=== PATIENT | male | born 1930 | race Caucasian/White ===

== ENCOUNTER 2017-02-13 07:04 | Day surgery (SDC) | payer MEDICARE ==
[~2017-02-13] VITALS: Ht 182.9 cm; Wt 107.7 kg
[~2017-02-13 07:04] MED LIST: ALBUTEROL0.09 MG/A1 IH; ASPIRIN E.C.325 MG PO; ATROVENT0.018 MG/A IH; ATROVENTNS0.03% NS; CARDURA 8MG TAB8 MG PO; CENTRUM SILVER1 CTB PO; COUMADIN 1MG1 MG/TAB PO; COUMADIN 3MG3 MG/TAB PO; DOXAZOCIN PO; DOXYCYCLINE 10100 MG PO; FISH OIL CONC1000 MG PO; HYGROTON25 MG PO; KLOR-CON 1010 MEQ PO; MVI PO; NORCO 325 MG-7.1 TAB PO; THEO-DUR 2200 MG/TAB PO; VITAMINC1000TA PO
[2017-02-13 08:29] VITALS: BP 120/97; PULSE 96; TEMP 97.5
[2017-02-13 08:34] LABS: INR 1.2 (0.8-3.0); PROTHROMBIN TIME 12.9 SECONDS (9.7-12.8)
[2017-02-13] MEDS ORDERED: NORCO 325 MG-101 TAB PO (08:35)
[2017-02-13] MEDS ORDERED: CARDURA4 MG PO (08:36)
[2017-02-13] MEDS ORDERED: COUMADIN 6MG6 MG/TAB PO (08:37)
[2017-02-13] MEDS ORDERED: NEURONTIN300 MG/CAP PO (08:39)
[2017-02-13 09:30] VITALS: BP 115/58; PULSE 81; TEMP 98.1
[2017-02-13 09:45] VITALS: BP 118/49; PULSE 82
[2017-02-13 10:00] VITALS: BP 102/58; PULSE 75
[2017-02-13 10:15] VITALS: BP 108/55; PULSE 71
[2017-02-13 10:38] VITALS: BP 96/55; PULSE 71
[2017-02-19] MEDS ORDERED: COUMADIN 5MG5 MG/TAB PO (09:08)
== END 2017-02-13 11:21 | disposition home or self-care (01) ==
LOC: SDCO 07:04
PROVIDERS: Internal Medicine Pulmonary Disease
DX: R91.8 Other nonspecific abnormal finding of lung field (principal); J84.10 Pulmonary fibrosis, unspecified; Z77.090 Contact with and (suspected) exposure to asbestos; G47.33 Obstructive sleep apnea (adult) (pediatric); I25.10 Atherosclerotic heart disease of native coronary artery without angina pectoris; Z87.891 Personal history of nicotine dependence; Z96.643 Presence of artificial hip joint, bilateral; Z79.899 Other long term (current) drug therapy; Z79.01 Long term (current) use of anticoagulants
CPT/HCPCS: J1956; J2704

== ENCOUNTER 2017-02-21 09:28 | Outpatient (CLI) | payer MEDICARE ==
[~2017-02-21] VITALS: Ht 182.9 cm; Wt 104.6 kg
[2017-02-21] VITALS (13 sets, daily range): BP systolic 105–129; BP diastolic 46–93; PULSE 61–92
[~2017-02-21 09:28] MED LIST changes: +CARDURA4 MG PO; +COUMADIN 5MG5 MG/TAB PO; +COUMADIN 6MG6 MG/TAB PO; +NEURONTIN300 MG/CAP PO; +NORCO 325 MG-101 TAB PO
[2017-02-21] MEDS ORDERED: HYGROTON 2525 MG/TAB PO (10:00)
[2017-02-21] MEDS ORDERED: VITAMINC1000TA PO (10:08)
[2017-02-21] MEDS ORDERED: COMPLETE SENIOR1 TA1 PO (10:08)
[2017-02-21] MEDS ORDERED: VITAMIN D 1001000 IU PO (10:09)
[2017-02-21 10:17] LABS: INR 1.3 (0.8-3.0); PROTHROMBIN TIME 14.1 SECONDS (9.7-12.8)
== END 2017-02-21 14:44 | disposition home or self-care (01) ==
LOC: COL.RAD 09:28
PROVIDERS: Internal Medicine Pulmonary Disease
DX: C34.92 Malignant neoplasm of unspecified part of left bronchus or lung (principal)
CPT/HCPCS: 3748

== ENCOUNTER → 2017-03-23 | Outpatient (CLI) | payer MEDICARE ==
[~2017-03-23] MED LIST changes: +COMPLETE SENIOR1 TA1 PO; +HYGROTON 2525 MG/TAB PO; +VITAMIN D 1001000 IU PO
== END ==
LOC: COL.PUL 09:54
DX: C34.32 Malignant neoplasm of lower lobe, left bronchus or lung (principal); Z87.891 Personal history of nicotine dependence